=== PATIENT | male | born 1960 | race Caucasian/White ===

== ENCOUNTER → 2016-08-10 | Outpatient (CLI) | payer OTHER ==
[2016-08-10 08:10] LABS: ALT 35 U/L (21-72); AST 25 U/L (17-59); Alkaline Phosphatase 67 U/L (38-126); Anion Gap 11 mmol/L; Blood Urea Nitrogen 17 mg/dL (9-20); Calcium 9.7 mg/dL (8.4-10.2); Carbon Dioxide 25 mmol/L (22-30); Chloride 107 mmol/L (98-107); Cholesterol 191 mg/dL (<200); Glucose 92 mg/dL (74-99); HDL Cholesterol 51 mg/dL (40-60); Non-African American GFR(MDRD) >60 (>60 ml/min/1.73 sqM); Sodium 143 mmol/L (137-145); Total Bilirubin 0.9 mg/dL (0.2-1.3); Total Protein 7.3 g/dL (6.3-8.2); Triglycerides 79 mg/dL (<150)
== END | disposition home or self-care (01) ==
LOC: LABWHC1 06:56
PROVIDERS: ATTEND Family Medicine
DX: I10 Essential (primary) hypertension (principal); I26.99 Other pulmonary embolism without acute cor pulmonale
CPT/HCPCS: 36415; 80053; 80061

== ENCOUNTER → 2017-04-26 | Outpatient (CLI) | payer OTHER ==
[2017-04-26 10:34] LABS: ALT 35 U/L (21-72); AST 22 U/L (17-59); Alkaline Phosphatase 79 U/L (38-126); Anion Gap 10 mmol/L; Blood Urea Nitrogen 21 mg/dL (9-20); Calcium 9.8 mg/dL (8.4-10.2); Carbon Dioxide 23 mmol/L (22-30); Chloride 106 mmol/L (98-107); Cholesterol 246 mg/dL (<200); Glucose 97 mg/dL (74-99); HDL Cholesterol 52 mg/dL (40-60); Non-African American GFR(MDRD) >60 (>60 ml/min/1.73 sqM); Potassium 4.7 mmol/L (3.5-5.1); Sodium 139 mmol/L (137-145); Total Bilirubin 0.8 mg/dL (0.2-1.3); Total Protein 7.1 g/dL (6.3-8.2)
[2017-04-26 11:01] LABS: Prostate Specific Antigen 0.76 ng/mL (0.00-4.00)
== END | disposition home or self-care (01) ==
LOC: LABWHC1 07:05
PROVIDERS: ATTEND Family Medicine
DX: E78.00 Pure hypercholesterolemia, unspecified (principal)
CPT/HCPCS: 36415; 80053; 80061; 84153

== ENCOUNTER → 2017-09-12 | Outpatient (CLI) | payer OTHER ==
[2017-09-12 07:22] LABS: ALT 27 U/L (21-72); AST 23 U/L (17-59); Albumin 4.4 g/dL (3.5-5.0); Alkaline Phosphatase 69 U/L (38-126); Anion Gap 9 mmol/L; Blood Urea Nitrogen 19 mg/dL (9-20); Carbon Dioxide 28 mmol/L (22-30); Chloride 107 mmol/L (98-107); Cholesterol 197 mg/dL (<200); Glucose 97 mg/dL (74-99); HDL Cholesterol 50 mg/dL (40-60); LDL Cholesterol,Calculated 131 mg/dL (0-99); Potassium 4.6 mmol/L (3.5-5.1); Sodium 144 mmol/L (137-145); Total Bilirubin 0.7 mg/dL (0.2-1.3); Total Protein 7.2 g/dL (6.3-8.2); Triglycerides 82 mg/dL (<150)
== END | disposition home or self-care (01) ==
LOC: LABWHC1 06:32
PROVIDERS: ATTEND Family Medicine
DX: E78.5 Hyperlipidemia, unspecified (principal); E78.00 Pure hypercholesterolemia, unspecified
CPT/HCPCS: 36415; 80053; 80061

== ENCOUNTER → 2019-02-01 | Outpatient (CLI) | payer OTHER ==
[2019-02-01 17:24] LABS: HCT 41.6 % (39.0-53.0); HGB 13.8 gm/dL (13.0-17.5); MCH 29.9 pg (25.0-35.0); MCHC 33.1 g/dL (31.0-37.0); MCV 90.2 fL (80.0-100.0); Mean Platelet Volume 7.1; Platelet Count 284 k/uL (150-450); RBC 4.61 m/uL (4.30-5.90); RDW 12.7 % (11.5-15.5); WBC 7.2 k/uL (3.8-10.6)
[2019-02-02 01:31] LABS: African American GFR (CKD) 108.7 (60.0-200.0); Albumin 4.5 g/dL (3.80-4.90); Albumin/Globulin Ratio 2.37 (1.60-3.17); Anion Gap 13.2 mmol/L (4.00-12.00); BUN/Creat Ratio 22.22 Ratio (12.00-20.00); Calcium 9.6 mg/dL (8.7-10.3); Carbon Dioxide 20.8 mmol/L (21.6-31.8); Globulin 1.9 g/dL (1.6-3.3); LDL Cholesterol,Calculated 125.2 mg/dL (0.0-131.0); Total Bilirubin 0.9 mg/dL (0.3-1.2); Total Protein 6.4 g/dL (6.2-8.2); VLDL Calculation 16.8 mg/dL (5.00-40.00)
[2019-02-02 01:37] LABS: T4, Free (Free Thyroxine) 1.2 ng/dL (0.80-1.80)
== END | disposition home or self-care (01) ==
LOC: LABWHC1 16:17
PROVIDERS: ATTEND Family Medicine
DX: Z00.00 Encounter for general adult medical examination without abnormal findings (principal); I10 Essential (primary) hypertension; E78.5 Hyperlipidemia, unspecified
CPT/HCPCS: 36415; 80053; 80061; 84439; 84443; 85027

== ENCOUNTER → 2020-06-09 | Outpatient (CLI) | payer BC ==
[2020-06-10 00:17] LABS: Albumin 4.8 g/dL (3.80-4.90); Albumin/Globulin Ratio 2.18 (1.60-3.17); Anion Gap 8.6 mmol/L (4.00-12.00); BUN/Creat Ratio 22.22 Ratio (12.00-20.00); Calcium 9.7 mg/dL (8.7-10.3); Carbon Dioxide 25.4 mmol/L (21.6-31.8); Chol/HDL Ratio 4.33; Globulin 2.2 g/dL (1.6-3.3); LDL Cholesterol,Calculated 150.6 mg/dL (0.0-131.0); Non-African American GFR(CKD) 93.2 (60.0-200.0); Potassium 4.1 mmol/L (3.5-5.5); Total Bilirubin 0.5 mg/dL (0.3-1.2); VLDL Calculation 22.4 mg/dL (5.00-40.00)
[2020-06-10 00:25] LABS: Prostate Specific Antigen 0.7 ng/mL (0.0-3.5)
== END | disposition home or self-care (01) ==
LOC: LABWHC1 15:58
PROVIDERS: ATTEND Family Medicine
DX: Z00.00 Encounter for general adult medical examination without abnormal findings (principal); E78.5 Hyperlipidemia, unspecified
CPT/HCPCS: 36415; 80053; 80061; 84153; 84443

== ENCOUNTER → 2020-08-28 | Outpatient (CLI) | payer BC ==
--- NOTE | 2020-08-29 02:31 | CT ---
EXAMINATION TYPE: CT sinus wo con DATE OF EXAM: 08/28/2020 COMPARISON: None HISTORY: chronic sinus congestion CT DLP: 435.9 mGycm Automated exposure control for dose reduction was used. Images obtained from the bottom of the maxilla to the top of the frontal sinuses without contrast. There is small mucus retention cysts in the right maxillary sinus. There is pneumatization of the lef t middle nasal turbinate. There is some left nasal turbinate atrophy. There is small area of mucosal thickening posterior left maxillary sinus. Nasal bone appears intact. Orbital margins are intact. The re is no evidence of a blowout fracture. There is no evidence of retro-orbital mass. Zygomatic arches appear normal. The maxilla is intact. There is normal aeration of the visualized mastoid sinuses. The epitympanic recess appears normal les aterally. There is some debris in the left external auditory canal. There are small cutaneous densities seen near the skin surface over the frontal bone that could be fo reign bodies. IMPRESSION: There is evidence of some minimal maxillary sinusitis. There is some nasal turbinate atrophy.
== END | disposition home or self-care (01) ==
LOC: RADCTMAIN 18:55
PROVIDERS: ATTEND Otolaryngology
DX: J32.0 Chronic maxillary sinusitis (principal); J31.1 Chronic nasopharyngitis
CPT/HCPCS: 70486

== ENCOUNTER → 2021-08-17 | Outpatient (CLI) | payer OTHER ==
[2021-08-17 23:48] LABS: African American GFR (CKD) 103.3 (60.0-200.0); BUN/Creat Ratio 17.12 Ratio (12.00-20.00); Blood Urea Nitrogen 15.8 mg/dL (9.0-27.0); Calcium 9.7 mg/dL (8.7-10.3); Carbon Dioxide 29.5 mmol/L (20.0-27.5); Chloride 102 mmol/L (96-109); Glucose 87 mg/dL (70-110); Non-African American GFR(CKD) 89.1 (60.0-200.0); Potassium 3.9 mmol/L (3.5-5.5); Sodium 139 mmol/L (135-145); Total Protein 7.1 g/dL (6.2-8.2)
[2021-08-17 23:49] LABS: ALT 19 U/L (10-49); AST 20 U/L (14-35); Albumin 4.7 g/dL (3.8-4.9); Albumin/Globulin Ratio 2.02 (1.60-3.17); Alkaline Phosphatase 80 U/L (41-126); Chol/HDL Ratio 4.48 Ratio; Globulin 2.4 g/dL (1.6-3.3); LDL Cholesterol,Calculated 167.9 mg/dL (0.0-131.0); VLDL Calculation 15.38 mg/dL (5.00-40.00)
== END | disposition home or self-care (01) ==
LOC: LABWHC1 15:07
PROVIDERS: ATTEND Family Medicine
DX: Z00.00 Encounter for general adult medical examination without abnormal findings (principal); Z12.5 Encounter for screening for malignant neoplasm of prostate; R53.83 Other fatigue
CPT/HCPCS: 36415; 80053; 80061; 84153; 84443

== ENCOUNTER → 2022-05-25 | Outpatient (CLI) | payer OTHER ==
[2022-05-25 12:53] LABS: Basophils # (A) 0.05 X 10*3/uL (0.00-0.10); HCT 42.8 % (39.6-50.0); HGB 14.6 g/dL (13.0-17.0); Immature Grans, Automated 0.2 %; Lymphocytes % (A) 37.2 %; MCH 30.9 pg (27.0-32.0); MCHC 34.1 g/dL (32.0-37.0); MCV 90.5 fL (80.0-97.0); Mean Platelet Volume 10.3 fL (9.5-12.2); Monocytes # (A) 0.54 X 10*3/uL (0.20-1.00); Monocytes % (A) 10.6 %; NRBC Per 100 WBC 0 /100 WBCS (0.0-0.0); Neutrophils # (A) 2.51 X 10*3/uL (1.80-7.70); Platelet Count 346 X 10*3/uL (140-440); RBC 4.73 X 10*6/uL (4.40-5.60); WBC 5.11 X 10*3/uL (4.50-10.00)
[2022-05-25 13:09] LABS: ALT 12 U/L (10-49); AST 16 U/L (14-35); African American GFR (CKD) 106.5 (60.0-200.0); Albumin 4.4 g/dL (3.8-4.9); Albumin/Globulin Ratio 1.91 (1.60-3.17); Alkaline Phosphatase 74 U/L (41-126); BUN/Creat Ratio 19.11 Ratio (12.00-20.00); Blood Urea Nitrogen 17.2 mg/dL (9.0-27.0); Calcium 9.6 mg/dL (8.7-10.3); Chloride 105 mmol/L (96-109); Globulin 2.3 g/dL (1.6-3.3); Glucose 96 mg/dL (70-110); Non-African American GFR(CKD) 91.9 (60.0-200.0); Potassium 4.6 mmol/L (3.5-5.5); Sodium 140 mmol/L (135-145); Total Protein 6.7 g/dL (6.2-8.2)
[2022-05-25 13:10] LABS: Chol/HDL Ratio 4.13 Ratio; LDL Cholesterol,Calculated 138.2 mg/dL (0.0-131.0); VLDL Calculation 17.16 mg/dL (5.00-40.00)
== END | disposition home or self-care (01) ==
LOC: LABWHC1 08:08
PROVIDERS: ATTEND Family Medicine
DX: Z00.00 Encounter for general adult medical examination without abnormal findings (principal); Z12.5 Encounter for screening for malignant neoplasm of prostate; R53.83 Other fatigue
CPT/HCPCS: 36415; 80053; 80061; 84153; 84443; 85025

== ENCOUNTER → 2022-10-31 | Outpatient (CLI) | payer BC ==
[2022-10-31 11:59] LABS: ALT 18 U/L (10-49); AST 21 U/L (14-35); African American GFR (CKD) 93.1 (60.0-200.0); Albumin 4.7 g/dL (3.8-4.9); Albumin/Globulin Ratio 1.88 (1.60-3.17); Alkaline Phosphatase 80 U/L (41-126); Blood Urea Nitrogen 16.8 mg/dL (9.0-27.0); Calcium 10.1 mg/dL (8.7-10.3); Carbon Dioxide 27.3 mmol/L (20.0-27.5); Chloride 104 mmol/L (96-109); Chol/HDL Ratio 4.35 Ratio; Creatine Kinase 119 U/L (35-257); Globulin 2.5 g/dL (1.6-3.3); Glucose 93 mg/dL (70-110); LDL Cholesterol,Calculated 149.6 mg/dL (0.0-131.0); Non-African American GFR(CKD) 80.3 (60.0-200.0); Potassium 4.6 mmol/L (3.5-5.5); Sodium 141 mmol/L (135-145); Total Protein 7.2 g/dL (6.2-8.2)
== END | disposition home or self-care (01) ==
LOC: LABWHC1 07:03
PROVIDERS: ATTEND Family Medicine
DX: I10 Essential (primary) hypertension (principal); E78.5 Hyperlipidemia, unspecified
CPT/HCPCS: 36415; 80053; 80061; 82550

== ENCOUNTER → 2023-06-12 | Outpatient (CLI) | payer BC ==
[2023-06-12 11:56] LABS: ALT 19 U/L (10-49); AST 20 U/L (14-35); Albumin 4.5 g/dL (3.8-4.9); Albumin/Globulin Ratio 1.96 Ratio (1.60-3.17); Alkaline Phosphatase 70 U/L (41-126); Blood Urea Nitrogen 13.8 mg/dL (9.0-27.0); Calcium 9.8 mg/dL (8.7-10.3); Carbon Dioxide 26.4 mmol/L (21.6-31.8); Chloride 104 mmol/L (96-109); Chol/HDL Ratio 3.11 Ratio; Globulin 2.3 g/dL (1.6-3.3); Glucose 93 mg/dL (70-110); LDL Cholesterol,Calculated 92.4 mg/dL (0.0-131.0); Potassium 4.7 mmol/L (3.5-5.5); Sodium 141 mmol/L (135-145); Total Bilirubin 0.7 mg/dL (0.3-1.2); Total Protein 6.8 g/dL (6.2-8.2)
[2023-06-12 11:58] LABS: Basophils # (A) 0.06 X 10*3/uL (0.00-0.10); Basophils % (A) 1.1 %; Eosinophils # (A) 0.16 X 10*3/uL (0.04-0.35); Eosinophils % (A) 2.9 %; HGB 14.6 g/dL (13.0-17.0); Lymphocytes # (A) 1.99 X 10*3/uL (0.90-5.00); Lymphocytes % (A) 35.9 %; MCH 30.8 pg (27.0-32.0); MCHC 33.2 g/dL (32.0-37.0); MCV 92.8 FL (80.0-97.0); Mean Platelet Volume 10.4 FL (9.5-12.2); Monocytes # (A) 0.53 X 10*3/uL (0.20-1.00); Monocytes % (A) 9.6 %; NRBC Per 100 WBC 0 X 10*3/uL (0.00-0.01); Neutrophils # (A) 2.79 X 10*3/uL (1.80-7.70); Neutrophils % (A) 50.3 %; Platelet Count 312 X 10*3/uL (140-440); RBC 4.74 X 10*6/uL (4.40-5.60); RDW 12.2 % (11.5-14.5); WBC 5.54 X 10*3/uL (4.50-10.00)
[2023-06-12 13:00] LABS: PSA Annual Screen 0.795 ng/mL (0.000-4.000)
== END | disposition home or self-care (01) ==
LOC: LABWHC1 06:51
PROVIDERS: ATTEND Family Medicine
DX: Z00.00 Encounter for general adult medical examination without abnormal findings (principal); Z12.5 Encounter for screening for malignant neoplasm of prostate; I10 Essential (primary) hypertension; E78.2 Mixed hyperlipidemia
CPT/HCPCS: 80061; 80053; 84443; 85025; 83036; 36415; G0103